=== PATIENT | male | born 1995 | race Caucasian/White ===

== ENCOUNTER 2018-01-06 15:40 | Emergency (ER) | payer BC ==
[2018-01-06 16:03] VITALS: BP 137/92
--- NOTE | 2018-01-06 17:49 | UC ---
Back Pain HPI - HPI Summary HPI Summary: PATIENT HAS HAD CHRONIC LOW BACK PAIN FOR YEARS. FOR THE PAST 2 WEEKS HAS NOTICED INCREASED PAIN IN HIS LEFT LOW BACK. DENIES ANY TRAUMA OR CHANGE IN ACTIVITY. NO URINARY SYMPTOMS. PAIN IS NOTICED WHEN HE TWISTS HIS BODY TO THE RIGHT AND STRETCHES OUT THOSE LEFT PARASPINOUS MUSCLES. NO NUMBNESS/TINGLING IN THE LEGS. NO LOSS OF BOWEL OR BLADDER CONTROL. NO SADDLE ANESTHESIA. - History of Current Complaint Chief Complaint: UCBackPain Stated Complaint: L SIDE LOWER BACK PAIN Time Seen by Provider: 01/06/18 17:19 Hx Obtained From: Patient Onset/Duration: Gradual Onset, Lasting Weeks, Still Present Timing: Constant Severity Initially: Moderate Severity Currently: Moderate Pain Intensity: 4 Pain Scale Used: 0-10 Numeric Back Pain: Is Discrete @ - LEFT LOW BACK Character: Sharp Aggravating Factor(s): Other - TWISTING Alleviating Factor(s): Rest Associated Signs And Symptoms: Positive: Negative - Allergies/Home Medications Allergies/Adverse Reactions: Allergies Allergy/AdvReac Type Severity Reaction Status Date / Time No Known Allergies Allergy Verified 01/06/18 16:03 PMH/Surg Hx/FS Hx/Imm Hx Previously Healthy: Yes - Surgical History Surgical History: None - Family History Known Family History: Positive: Hypertension - Social History Alcohol Use: Weekly Substance Use Type: None Smoking Status (MU): Never Smoked Tobacco Review of Systems Constitutional: Negative Skin: Negative Respiratory: Negative Cardiovascular: Negative Gastrointestinal: Negative Genitourinary: Negative Musculoskeletal: Arthralgia, Myalgia All Other Systems Reviewed And Are Negative: Yes Physical Exam Triage Information Reviewed: Yes Appearance: Well-Appearing, No Pain Distress, Well-Nourished Vital Signs: Initial Vital Signs Temp 98.9 F 01/06/18 15:59 Pulse 100 01/06/18 15:59 Resp 16 01/06/18 15:59 BP 137/92 01/06/18 15:59 Pulse Ox 100 01/06/18 15:59 Laboratory Tests 01/06/18 17:26 POC Urine Color Yellow POC Urine Clarity Clear POC Urine pH 5.5 POC Ur Specif [place] 1.020 POC Urine Protein Negative POC Ur Glucose (UA) Negative POC Urine Ketones Trace A POC Urine Blood Negative POC Urine Nitrite Negative POC Urine Bilirubin Negative POC Urine Urobilinogen 0.2 POC U Leukocyte Esteras Negative Vital Signs Reviewed: Yes Eyes: Positive: Conjunctiva Clear ENT: Positive: Hearing grossly normal Neck: Positive: Supple Respiratory: Positive: No respiratory distress, No accessory muscle use Cardiovascular: Positive: Pulses Normal Abdomen Description: Positive: Soft. Negative: CVA Tenderness (R), CVA Tenderness (L), Distended, Guarding Musculoskeletal: Positive: ROM Intact, No Edema, Other: - NO TENDERNESS OVER SPINE OR PARASPINOUS MUSCLES Neurological: Positive: Alert Psychological: Positive: Age Appropriate Behavior Skin: Negative: rashes Diagnostics - Radiology L-SPINE XRAY Xray Interpretation: Positive (See Comments) - LIMBUS VERTEBRA L4 Radiology Interpretation Completed By: Radiologist Back Pain Course/Dx - Differential Dx/Diagnosis Provider Diagnoses: ACUTE ON CHRONIC LOW BACK PAIN Discharge - Sign-Out/Discharge Documenting (check all that apply): Patient Departure All imaging exams completed and their final reports reviewed: Yes - Discharge Plan Condition: Stable Disposition: HOME Prescriptions: Cyclobenzaprine TAB* [Flexeril TAB*] 10 mg PO BID PRN #30 tab PRN Reason: Pain Naproxen [Naproxen EC] 500 mg PO BID PRN #30 tab PRN Reason: Pain Patient Education Materials: Low Back Strain (ED) Referrals: Henry Romero MD [Primary Care Provider] - If Needed Additional Instructions: X-RAY TODAY SHOWS A LIMBUS VERTEBRA OF L4. THIS IS A BONY ABNORMALITY THAT MAY HAVE DEVELOPED YOU WERE GROWING. THEY DO NOT OFTEN CAUSE DISCOMFORT. YOU LIKELY HAVE A MUSCLE STRAIN. HOWEVER I WOULD RECOMMEND THAT YOU BE EVALUATED BY THE [facility] IN [place] GIVEN YOUR LONG-STANDING HISTORY OF BACK PAIN. YOU MAY BENEFIT FROM MORE ADVANCED IMAGING. MUSCLE RELAXER AND ANTI- INFLAMMATORY NEEDED TO HELP MANAGE YOUR SYMPTOMS. BE SURE TO GO THROUGH SLOW RANGE OF MOTION AND STRETCHING EXERCISES DAILY YOU ARE ABLE TO PREVENT STIFFENING UP AND MAKING THE DISCOMFORT WORSE. GO TO THE ED WITHOUT FAIL IF YOU DEVELOP WORSENING NUMBNESS/TINGLING IN YOUR LEGS, NUMBNESS IN THE GENITAL REGION, LOSS OF BOWEL/BLADDER CONTROL, INTOLERABLE PAIN OR ANY OTHER CONCERNING SYMPTOMS. CALL THE NUMBER BELOW FOR ASSISTANCE IN ESTABLISHING WITH A PCP An additional resource available to assist in finding the appropriate physician for your health care needs is the [facility] ([facility]). You may contact them by calling [phone]. [facility] [address] [place] [address] - Billing Disposition and Condition Condition: STABLE Disposition: Home
--- NOTE | 2018-01-06 18:04 | RAD ---
Indication: Low back pain. 3 views of lumbar spine demonstrates a limbus vertebra superior endplate L4. Otherwise the vertebral bodies appear normal in height. Spinal canal appears intact. IMPRESSION: Limbus vertebra superior endplate L4 without fracture.
== END 2018-01-06 18:43 | disposition home or self-care (01) ==
LOC: UCEAST 15:40
DX: G89.29 Other chronic pain (principal); M54.5 Low back pain
CPT/HCPCS: 72100; 81003; 99212; G0463